=== PATIENT | male | born 1995 | race African-American/Black ===

== ENCOUNTER 2018-03-04 12:36 | Emergency (ER) | payer OTHER ==
[2018-03-04 12:41] VITALS: BP 131/83; PULSE 91; TEMP 99; BMI 28.8
--- NOTE | 2018-03-04 13:13 | PDOC ---
History of Present Illness - General Chief Complaint: Laceration Stated Complaint: LACERATION Time Seen by Provider: 03/04/18 13:03 History Source: Patient Exam Limitations: No Limitations - History of Present Illness Initial Comments: 03/04/18 13:21 22 yr male with skin avulsion to the right inner wrist, pt states he tripped and fell injured on glass door. No other injuries, pt is utd with tetanus vaccine. no allergies. Timing/Duration: reports: just prior to arrival Severity: Yes: mild Location: reports: extremities Respiratory Risk Factors: reports: no cause identified Past History - Past Medical History Allergies/Adverse Reactions: Allergies Allergy/AdvReac Type Severity Reaction Status Date / Time No Known Allergies Allergy Verified 03/04/18 12:42 Home Medications: Ambulatory Orders NK [No Known Home Medication] 03/04/18 COPD: No - Immunization History Immunization Up to Date: Yes (at 17) - Suicide/Smoking/Psychosocial Hx Smoking History: Never smoked Review of Systems - Review of Systems Able to Perform ROS?: Yes Is the patient limited Portuguese proficient: No Constitutional: No: Symptoms Reported HEENTM: No: Symptoms Reported Respiratory: No: Symptoms reported Cardiac (ROS): No: Symptoms Reported ABD/GI: No: Symptoms Reported : No: Symptoms Reported Musculoskeletal: No: Symptoms Reported Integumentary: Yes: Symptoms Reported Neurological: No: Symptoms reported *Physical Exam - Vital Signs Last Vital Signs Temp Pulse Resp BP Pulse Ox 99.0 F 91 H 18 131/83 98 03/04/18 12:36 03/04/18 12:36 03/04/18 12:36 03/04/18 12:36 03/04/18 12:36 - Physical Exam General Appearance: Yes: Nourished, Appropriately Dressed HEENT: positive: EOMI, VIDAL Extremity: positive: Normal Capillary Refill, Normal Range of Motion, Other ( right inner wrist with 2cm superficial avulsion no active bleeding, nv intact no tendon involvement, ) Neurologic: positive: Fully Oriented, Alert, Normal Mood/Affect, Normal Response , Motor Strength 5/5 Procedures - Laceration/Wound Repair Right Volar Wrist Wound Length: to 2.5 cm Wound Explored: clean (avulsion to the skin ) Wound's Depth, Shape: superficial Irrigated w/ Saline: Yes Sterile Dressing Applied: Yes (xeroform gauze and bandage applied ) Medical Decision Making - Medical Decision Making 03/04/18 13:24 cc: trip and fall cut to the right inner wrist no active bleeding tetanus is UTD wound cleaned, xeroform gauze and dressing placed nv intact , FROM no tendon involvement *DC/Admit/Observation/Transfer Diagnosis at time of Disposition: Avulsion, skin - Discharge Dispostion Disposition: HOME Condition at time of disposition: Improved - Referrals - Patient Instructions Printed Discharge Instructions: Skin Wound Additional Instructions: keep clean and dry 48-72 hours at most then remove clean gently with warm water dry and apply bandaid daily until healed - Post Discharge Activity
== END 2018-03-04 13:25 | disposition home or self-care (01) ==
LOC: JERFT 12:36
PROC: 0HQDXZZ Repair Right Lower Arm Skin, External Approach (ICD-10-PCS; principal; 2018-03-04)
DX: S61.511A Laceration without foreign body of right wrist, initial encounter (principal); W25.XXXA Contact with sharp glass, initial encounter; Y93.89 Activity, other specified; Y92.9 Unspecified place or not applicable
CPT/HCPCS: 99281-25